=== PATIENT | female | born 1955 | race Caucasian/White ===

== ENCOUNTER 2024-03-01 11:09 | Outpatient (AMB) | payer MEDICARE, SELFPAY ==
--- NOTE | 2024-03-01 11:13 | A.OFFVIS_ITS ---
Vital Signs 03/01/24 11:14 Height 5 ft 4 in Weight 141 lb BMI 24.2 BP 110/78 Blood Pressure Location Rt brachial Position Sitting Pulse 76 Pulse Source Pulse Oximeter Pulse Oximetry (%) 100 Oxygen Delivery Method Room Air Intake Visit Reasons: ENP-Parkinsons/Neuro Retiring Intake Note: patient presents for parkinsons Allergies No Known Allergies [No Known Allergies*] Allergy (Unverified 03/01/24 11:15) Medication List - Last Reconciled 03/01/24 by Ashley Pena MD acyclovir 800 mg PO DAILY amoxicillin 500 mg PO Q12H betamethasone dipropionate 0.05% 1 appl topical DAILY PRN carbidopa-levodopa 25-100 mg 1 tab PO BID estradiol (Yuvafem) mcg vaginal ibuprofen 600 mg PO TID venlafaxine ER 75 mg PO DAILY HPI Comments Details: 68y/o Right handed female comes for further management of possible parkinsonism. she was diagnosed with parkinsonism in 2016 - by Dr. Padgett.Her symptoms started in 2014 - noticed her left leg was tight and gait was less fluid. she also noticed some posturing with her left hand. started her on carbidopa/levodopa 1-2 tabs a day and it imporved her gait.since 2014 she has not noticed any major declines. She has occasional very mild tremor in left hand. speech- no change , no drooling Handwriting is normal. Memory - mild difficulty with recall sleep- no sleep talking Mood- normal No difficulty with using utensils, dressing , hygiene, shower ,turning in bed etc. Gait improved with meds- good . she recently has some tightness in left hip.- she also has lumbar spondylosis.she was seen by ortho walk in clinic and waiting for an appointment. she was seen by a Functional medicine [employer] [employer] - did a mold and metal detox in 2017 and 2023. [facility] Medical History (Updated 03/01/24 @ 11:42 by Ashley Pena MD) Parkinsonism Lumbar spondylosis Parkinson disease Depressive disorder Prediabetes Family History Father Heart disease Stroke Mother Thyroid disorder Physical Exam Vital Signs: Last Vital Signs Pulse 76 03/01/24 11:14 BP 110/78 03/01/24 11:14 Pulse Ox 100 03/01/24 11:14 Oxygen Delivery Method Room Air 03/01/24 11:14 BMI result Body Mass Index 24.2 Const General: cooperative, healthy appearing, comfortable and no acute distress Nutritional Appearance: average body habitus Orientation/consciousness: patient oriented x3 Eyes Pupils: Equal, round and reactive pupils present Neck Neck: Yes no meningeal signs Neuro Other: Mild decreased blink and facial expression Neck tightness- Tilted to right No tremors Mild left hand posturing Mild cog wheel rigidity - 1+ mohit UE FFM mild decreased left Foot taps - decreased left gait- left hip pain , antalgic gait. General: patient oriented x3, moves all extremities, no meningeal signs and no focal motor deficits Cranial nerves: Yes Facial sensation intact/muscles of mastication intact, Yes Equal, round and reactive pupils present, Yes Bilaterally intact EOM present, Yes Nystagmus not present, Yes Normal facial strength present and Yes Midline tongue present Cognition (Neuro): normal cognition Gait exam (Neuro): Antalgic gait present Motor exam (neuro): 5/5 motor strength present throughout Deep tendon reflexes (DTR's): Right triceps reflex intensity grade: 1+, Left triceps reflex intensity grade: 1+, Rt Biceps (C5, C6): 1+, Left biceps reflex intensity grade: 1+, Right brachioradialis reflex intensity grade: 1+, Left brachioradialis reflex intensity grade: 1+, Right patellar reflex intensity grade: 1+ and Left patellar reflex intensity grade: 1+ Coordination: [id number] test normal Results Reviewed Results Reviewed: MRI Lumbar spine Jan 2024 Lumbar deg changes with formainal narrowing and spinal canal narrowing L5-S1 foraminal narrowing with crowding of exiting L5 nerve root. Hip- mild gluteus medius and tendinopathy and peritendinitis Assessment & Plan Assessment & Plan (1) Parkinsonism: Code(s): G20.C - Parkinsonism, unspecified Category: Medical Qualifiers: Parkinsonism type: primary Parkinsonism Qualified Code(s): G20.C - Parkinsonism, unspecified (2) Lumbar spondylosis: Code(s): M47.816 - Spondylosis without myelopathy or radiculopathy, lumbar region Category: Medical Plan Ingrid scan to confirm parkinsons Continue carbidopa/levodopa 25/100 bid Continue exercise F/u with ortho Orders: Orders DaTscan Today G20.C - Parkinsonism, unspecified Medications: New carbidopa-levodopa 25-100 mg 1 tab PO BID 180 tabs 2RF Coding Level of Care Code New Pt Level 4 (66459) Diagnoses Primary parkinsonism G20.C Parkinsonism type: primary Parkinsonism Lumbar spondylosis M47.816
[2024-03-01 11:14] VITALS: BP 110/78; PULSE 76; O2SAT 100; BMI 24.2
--- OUTSIDE RECORDS SUMMARY | 2024-03-01 13:02 | XMS_ITS | Patient Health Record ---
Author Organization [facility] Address [address] [place] [address] Care Team Providers Care Utilization Management Rn Name Role Phone Zari Adler MD Primary Care Provider Devan Dorsey Unavailable [phone] Allergies No Known Allergies Reason For Referral No Information Medications Medication SIG (Take, Route, Fr equency, Duration) Notes Start Date End Date Status Effexor XR 75 MG 1 capsule with food Orally Once a day for 30 days 02/25/2019 Active Sinemet 25-100 MG Orally twice a day 02/25/2019 Active Voltaren 1 % as directed Externally 06/27/2022 Active Social History Tobacco Use: Social History Observation Description Date Details (start date - stop date) Never Smoker NA - NA Tobacco Use/Smoking Question Answer Notes Are you a: nonsmoker Alcohol Screen Question Answer Notes Did you have a drink containing alcohol in the p ast year? No Points 0 Interpretation Negative Tobacco use other than smoking: Question Answer Notes Are you an other tobacco user? No Problems Problem Type SNOMED Code ICD Code Onset Dates Problem Status W/U Status Risk Notes Problem Acquired hammer toe of left foot (1344158062477 103) Other hammer toe(s) (acquired), left foot (M20.42) Active confirmed Problem Acquired hallux rigidus (9752802) Hallux rigidus, right foot (M20.21) Active confirmed Problem [id number] Parkinson disease (G20) Active confirmed Plan Of Treatment Pending Test Test Name Order Date X ray : Foot, left 3V 03/17/2019 Insurance Providers Payer Name Payer Address Payer Phone Subscriber Number Group Number Insured Name Patient Relationship to Insured Coverage Start Date Coverage End Date [employer] 65 Medicare Preferred [address] [place] [address] [id number] Mery Torre Self - patient is the insured Medical (General) History Medical History History ICD Code Anxiety Back,Hip,and Knee pain Depression Measles Mumps Chicken pox covid-19 Parkinsons disease Surgical History Surgery Date(Month/Year)
--- OUTSIDE RECORDS SUMMARY | 2024-03-01 13:02 | XMS_ITS | Continuity of Care Document ---
Author Organization [facility] ter Address [address] [place] [id number] Care Team Providers Care Therapist Rrt Name Role Phone Zari Adler MD Primary Care Physician [phone] Encounter 02/04/24 - 02/05/[address] [address] Attending Physician: Not on Staff, Attending MD Referring Physician: Not on Staff, Referring MD Encounter Type: [facility] Allergies, Adverse Reactions, Alerts No Known Medication Allergies Substance Criticality Severity Reaction Reaction Severity Status Pollen Active Immunizations Given and Recorded Vaccine Date Status Refusal Reason Hepatitis A Adult Vaccine 1 03/05/17 Given influenza virus vaccine, inactivated 2 11/07/16 Gi anjum influenza virus vaccine, inactivated 11/24/15 Give n influenza virus vaccine, inactivated 12/22/14 Give n influenza virus vaccine, inactivated 3 11/16/13 Re corded influenza virus vaccine, inactivated 4 12/30/12 Re corded influenza virus vaccine, inactivated 5 10/23/10 Gi anjum tetanus-diphtheria toxoids (Td) 08/04/16 Given tetanus-diphtheria toxoids (Td) 05/10/02 Given Fluzone (oldterm) 6 10/17/11 Given Fluzone (oldterm) 7 11/02/09 Given tetanus/diphtheria/pertussis, acel(Tdap) 8 03/25/11 Given influ virus vac, H1N1, inactive(oldterm) 9 03/07/09 Given Influenza Inactive (IM) (oldterm) 10 11/10/08 Give n Influenza Inactive (IM) (oldterm) 11/27/07 Given Influenza Inactive (IM) (oldterm) 11 12/04/06 Give n Pneumococcal Poly (PPV23) (oldterm) 01/24/06 Given 1Result Comment: [03/05/2017] [facility] [id number] 2Result Comment: [11/07/2016] [id number] 3Result Comment: [11/22/2013] 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 4Location History: At work 5Admin Note: vis given 09-27-08 FLUARIX Formula 6Admin Note: VIS given 08/19/2011 7Admin Note: 09/26/09 vim given today 8Admin Note: vim given to pt01/05/08 9Admin Note: VIM given, date 11/25 10Admin Note: 09/27/08 vim given today 11Admin Note: VIM-SANOFI Medications acyclovir 800 mg oral tablet See Instructions, 1 tablet By Mouth 3 times a day for two days if needed for each episode, # 18 tablet, 5 Refills, Maintenance, 06/04/17 1:45:58 PM EDT, [facility]/pharmacy #[id number] Start Date: 06/04/17 Status: Ordered Quantity: 18.0 Unit: tablet Repeat number: 6 Compund estrogen/ testosterone cream Compund estrogen/ testosterone cream, Refills 0, Maintenance, 01/21/22 11:20:00 AM EST, Supply Start Date: 01/21/22 Status: Ordered Repeat number: 1 ibuprofen 600 mg oral tablet 600 mg, 1, tablet, By Mouth, 2 times a day, PRN, with food or milk, # 60 tablet, Refills 3, Tot. Refills 3, Maintenance, as needed for pain, 02/26/17 9:19:11 AM EST, Route to Pharmacy Electronically, [facility]/pharmacy #[id number] Start Date: 02/26/17 Stop Date: 06/26/17 Status: Ordered Quantity: 60.0 Unit: tablet Repeat number: 4 Sinemet 10 mg-100 mg oral tablet 1 tablet, By Mouth, 4 times a day, 0 Refills, Maintenance, 05/20/23 11:15:00 AM EDT, Partial fill upon patient request if the prescription is for a schedule II opioid drug. Start Date: 05/20/23 Status: Ordered Repeat number: 1 venlafaxine 75 mg oral capsule, extended release 225 mg, 3, capsule, By Mouth, Daily, per psychiatric prescriber, # 90 capsule, Refills 0, Tot. Refills 0, Maintenance, 05/02/16 4:52:43 PM EDT, Do Not Route Start Date: 05/02/16 Status: Ordered Quantity: 90.0 Unit: capsule Repeat number: 1 Yuvafem 10 mcg vaginal tablet See Instructions, INSERT 1 TABLET VAGINALLY EVERY FRIDAYAND FRIDAY AT BEDTIME, # 24 tablet, 3 Refills, Maintenance, 10/08/23 1:23:00 PM EDT, [id number], 159.8, cm, 05/20/23 11:14:00 EDT, Height, 63.3, kg, 05/20/23 11:14:00 EDT, Dry Weight Start Date: 10/08/23 Status: Ordered Quantity: 24.0 Unit: tablet Repeat number: 1 Problem List Condition Confirmation Course Effective Dates Status Health St atus Informant Atrophic vaginitis Confirmed Active Depression with anxiety Confirmed Active Prediabetes Confirmed Active Menopause Confirmed Active Social History Social History Type Response Smoking Status Never smoker entered on: 01/17/14 Sex Sex Representation Female (finding) Patient Care team information Care Team Personnel Name: Zari Adler MD Position: [facility] Outreach Member Role: PCP Address: [address] [place] [address] Telecom: Care Team Related Persons Name: JENNIFER DURON Name: FLAQUITA EDWARDS Insurance Providers Guarantor name: MARLA TO Health Plan Information #: 1 Payer: NA Member Number: NA Policy Number: NA Group Number: NA
== END 2024-03-01 11:49 | disposition home or self-care (01) ==
PROVIDERS: Visit Provider Psychiatry & Neurology Neurology
DX: G20.C Parkinsonism, unspecified (principal); M47.816 Spondylosis without myelopathy or radiculopathy, lumbar region
CPT/HCPCS: 99204

== ENCOUNTER → 2024-03-01 11:09 | Outpatient (BNVA) | payer MEDICARE, SELFPAY | PROVIDERS: Visit Provider Psychiatry & Neurology Neurology | DX: G20.C Parkinsonism, unspecified (principal); M47.816 Spondylosis without myelopathy or radiculopathy, lumbar region | CPT/HCPCS: 99202 ==

== ENCOUNTER 2024-08-30 11:33 | Outpatient (AMB) | payer MEDICARE, SELFPAY ==
[2024-08-30 11:34] VITALS: BP 100/62; PULSE 83; O2SAT 98; BMI 22.5
--- NOTE | 2024-08-30 11:34 | MHC.OFFVIS ---
Vital Signs 08/30/24 11:34 Height 5 ft 4 in Weight 131 lb BMI 22.5 BP 100/62 Blood Pressure Location Rt brachial Position Sitting Pulse 83 Pulse Source Pulse Oximeter Pulse Oximetry (%) 98 Oxygen Delivery Method Room Air Intake Visit Reasons: follow up Parkinsons Intake Note: Patient presents for follow up Ingrid scan at [facility]. no records showing patient assisted to appt. 05/05/23 Health And Safety Advisor Required: No Accompanied by: Self / Same As Patient Allergies No Known Allergies (No Known Allergies*) Allergy (Verified 08/30/24 11:35) HPI Comments Details: 68y/o Right handed female comes for follow up of possible parkinsonism.No falls no worsening of symptoms. she is independant.she is doing good History from her initial visit-Feb 2024 she was diagnosed with parkinsonism in 2016 - by Dr. Padgett.Her symptoms started in 2014 - noticed her left leg was tight and gait was less fluid. she also noticed some posturing with her left hand. started her on carbidopa/levodopa 1-2 tabs a day and it imporved her gait.since 2014 she has not noticed any major declines. She has occasional very mild tremor in left hand. speech- no change , no drooling Handwriting is normal. Memory - mild difficulty with recall sleep- no sleep talking Mood- normal No difficulty with using utensils, dressing , hygiene, shower ,turning in bed etc. Gait improved with meds- good . she recently has some tightness in left hip.- she also has lumbar spondylosis.she was seen by ortho walk in clinic and waiting for an appointment. 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 [facility] Medical History Parkinsonism Lumbar spondylosis Parkinson disease Depressive disorder Prediabetes Family History Father Heart disease Stroke Mother Thyroid disorder Physical Exam Vital Signs: Last Vital Signs Pulse 83 08/30/24 11:34 BP 100/62 08/30/24 11:34 Pulse Ox 98 08/30/24 11:34 Oxygen Delivery Method Room Air 08/30/24 11:34 BMI result Body Mass Index 22.5 Const General: cooperative, healthy appearing, comfortable and no acute distress Nutritional Appearance: average body habitus Orientation/consciousness: patient oriented x3 Eyes Pupils: Equal, round and reactive pupils present Neck Neck: Yes no meningeal signs Neuro Other: Mild decreased blink and facial expression Neck tightness- Tilted to right No tremors Mild left hand posturing Mild cog wheel rigidity - 1+ mohit UE FFM mild decreased left Foot taps - decreased left gait- left hip pain , antalgic gait. General: patient oriented x3, moves all extremities, no meningeal signs and no focal motor deficits Cranial nerves: Yes Facial sensation intact/muscles of mastication intact, Yes Equal, round and reactive pupils present, Yes Bilaterally intact EOM present, Yes Nystagmus not present, Yes Normal facial strength present and Yes Midline tongue present Cognition (Neuro): normal cognition Gait exam (Neuro): Antalgic gait present Motor exam (neuro): 5/5 motor strength present throughout Coordination: [id number] test normal Assessment & Plan Assessment & Plan (1) Parkinsonism: Code(s): G20.C - Parkinsonism, unspecified Category: Medical Qualifiers: Parkinsonism type: primary Parkinsonism Qualified Code(s): G20.C - Parkinsonism, unspecified (2) Lumbar spondylosis: Code(s): M47.816 - Spondylosis without myelopathy or radiculopathy, lumbar region Category: Medical Plan Ingrid scan to confirm parkinsons- she did not want to do it. Continue carbidopa/levodopa 25/100 bid Continue exercise F/u with ortho Coding Level of Care Code Est Pt Level 4 (64101) Diagnoses Primary parkinsonism G20.C Parkinsonism type: primary Parkinsonism Lumbar spondylosis M47.816
--- OUTSIDE RECORDS SUMMARY | 2024-08-30 12:43 | XMS_ITS | Patient Health Record ---
Author Organization [facility] Address [address] [place] [address] Care Team Providers Care Manager Float Name Role Phone Zari Adler MD Primary Care Provider Devan Dorsey Unavailable [phone] Allergies No Known Allergies Reason For Referral No Information Medications Medication SIG (Take, Route, Fr equency, Duration) Notes Start Date End Date Status Effexor XR 75 MG 1 capsule with food Orally Once a day; Duration: 30 days 02/25/2019 Active Sinemet 25-100 MG [...] Problem Acquired hammer toe of left foot ([id number] 103) Other hammer toe(s) (acquired), left foot (M20.42) Active confirmed Problem Acquired hallux rigidus (0010398) Hallux rigidus, right foot (M20.21) Active confirmed Problem Parkinson disease (97596910) Parkinson disease (G20) Active confirmed Plan Of Treatment Pending Test Test Name Order Date X ray : Foot, left 3V 03/17/2019 Insurance Providers Payer Name Payer Address Payer Phone Subscriber Number Group Number Insured Name Patient Relationship to Insured Coverage Start Date Coverage End Date [employer] 65 Medicare Preferred [address] [place] [address] [id number] Mery Torre Self - patient is the insured Medical (General) History Medical History History ICD Code Anxiety Back,Hip,and Knee pain Depression Measles Mumps Chicken pox covid-19 Parkinsons disease Surgical History Surgery Date(Month/Year)
== END 2024-08-30 11:58 | disposition home or self-care (01) ==
LOC: HO.HSMS 11:33
PROVIDERS: Visit Provider Psychiatry & Neurology Neurology
DX: G20.C Parkinsonism, unspecified (principal); M47.816 Spondylosis without myelopathy or radiculopathy, lumbar region
CPT/HCPCS: 99214

== ENCOUNTER → 2024-08-30 11:33 | Outpatient (BNVA) | payer MEDICARE, SELFPAY | PROVIDERS: Visit Provider Psychiatry & Neurology Neurology | DX: G20.C Parkinsonism, unspecified (principal); M47.816 Spondylosis without myelopathy or radiculopathy, lumbar region | CPT/HCPCS: 99212 ==